=== PATIENT | female | born 1935 | race Caucasian/White ===

== ENCOUNTER 2023-12-26 10:46 | Inpatient (IN) | payer MEDICARE, OTHER ==
[2023-12-26] MEDS: ACETAMINOPHEN 1000 MG/100 ML BAG IVPB ONE (12:15)
[2023-12-26] MEDS: SODIUM CHLORIDE 0.9% 500 ML INFUS.BAG IV ONE ×2 (13:15→16:00)
[2023-12-26 13:38] LABS: BASO % 0.3 % (0-2.0); EOS % 0.2 % (0-4.5); HEMATOCRIT 29.4 % (32.4-45.2); LYMPH % 19.3 % (8-40); MCH 27.7 pg (25.7-33.7); MCHC 33.8 g/dl (32.0-36.0); MEAN PLT VOLUME 8.1 fl (7.5-11.1); MONO % 5.9 % (3.8-10.2); NEUT % 74.3 % (42.8-82.8); PLATELET COUNT 335 10^3/uL (134-434); RBC 3.59 M/mm3 (3.60-5.2); RDW 14.4 % (11.6-15.6); WHITE BLOOD COUNT 10.9 K/mm3 (4.0-10.0)
[2023-12-26 13:41] LABS: EPI CELLS 8 /uL (0-25.1); HYALINE CASTS 0 /uL (0-3.1); PH,URINE 5.5 (5.0-8.0); URINE APPEARANCE CLOUDY; URINE BACTERIA >9,000 /uL (0-1359); URINE BILIRUBIN NEGATIVE (NEGATIVE); URINE COLOR YELLOW; URINE GLUCOSE (UA) NEGATIVE (NEGATIVE); URINE KETONE NEGATIVE (NEGATIVE); URINE LEUK ESTERASE 2+ (NEGATIVE); URINE NITRITE POSITIVE (NEGATIVE); URINE PROTEIN 1+ (NEGATIVE); URINE RBC 6 /uL (0-23.9); URINE UROBILINOGEN 0.2 mg/dL (0.2-1.0); URINE WBC 621 /uL (0-25.8)
[2023-12-26 13:58] LABS: CHLORIDE 94 mmol/L (98-107); SODIUM 122 mmol/L (136-145)
[2023-12-26 13:59] LABS: CALCIUM 9.2 mg/dL (8.5-10.1)
[2023-12-26 14:00] LABS: ALBUMIN 3.5 g/dl (3.4-5.0); BLOOD UREA NITROGEN 36.8 mg/dL (7-18); CO2 20 mmol/L (21-32); GLUCOSE,RANDOM 119 mg/dL (74-106); MAGNESIUM 1.7 mg/dL (1.8-2.4)
[2023-12-26 14:03] LABS: SGOT/AST 14 U/L (15-37)
[2023-12-26 14:05] LABS: BILIRUBIN,TOTAL 0.2 mg/dL (0.2-1); TOT PROT 7.4 g/dl (6.4-8.2)
[2023-12-26 14:06] LABS: ALK PHOS 52 U/L (45-117)
[2023-12-26 14:09] LABS: SGPT/ALT 13 U/L (13-61)
[2023-12-26 14:12] LABS: ANION GAP 8 mmol/L (4-13); POTASSIUM 7.2 mmol/L (3.5-5.1)
[2023-12-26] MEDS ORDERED: DEXTROSE 50%-WATER 25 GM/50 ML DISP.SYRIN ONE (15:41)
[2023-12-26] MEDS ORDERED: CEFTRIAXONE 1 GM/50 ML BAG ONE (15:42)
[2023-12-26] MEDS: CALCIUM GLUCONATE 10% - 1,000 MG/10 ML VIAL IVPUSH ONE (16:00)
[2023-12-26] MEDS: CEFTRIAXONE 1,000 MG in DEXTROSE 5%-WATER - 50 ML IVPB ONE (16:00)
[2023-12-26] MEDS: INSULIN REGULAR HUMAN 100 UNITS/ML *VIAL IVPUSH ONE (16:00)
[2023-12-26] MEDS: DEXTROSE 50%-WATER - 25 GM/50 ML VIAL IVPUSH ONE (16:00)
[2023-12-26] MEDS: CEFTRIAXONE 1 GM in DEXTROSE 5%-WATER - 50 ML IVPB ONE (17:58)
[2023-12-26] MEDS: DEXTROSE 50%-WATER 25 GM/50 ML DISP.SYRIN IVPUSH ONE (18:46)
[2023-12-26] MEDS: MAGNESIUM SULF 50% (8.12 MEQ/2 ML-1 GM VIAL) IVPB ONE (18:46)
[2023-12-26] MEDS: CALCIUM GLUCONATE 10% - 1,000 MG/10 ML VIAL IVPB ONE (18:47)
[2023-12-26 20:57] LABS: POTASSIUM 5.9 mmol/L (3.5-5.1)
[2023-12-26 21:02] LABS: CREATININE 1.5 mg/dL (0.55-1.3)
[2023-12-26] MEDS ORDERED: MIRTAZAPINE 15 MG TABLET (FP) ONE (22:45)
[2023-12-26] MEDS ORDERED: GABAPENTIN 100 MG CAPSULE ONE (22:45)
[2023-12-26] MEDS ORDERED: HEPARIN NA (PORCINE) 5,000 UNITS/ML 1ML VIAL ONE (22:46)
[2023-12-26] MEDS: HEPARIN NA (PORCINE) 5,000 UNITS/ML 1ML VIAL SQ SCH (22:58)
[2023-12-26] MEDS: GABAPENTIN 100 MG CAPSULE PO SCH (22:58)
[2023-12-26] MEDS: INSULIN ASPART SLIDING SCALE (NOVOLOG) 1 VIAL SQ SCH (22:58)
[2023-12-26] MEDS: MIRTAZAPINE 15 MG TABLET (FP) PO SCH (22:58)
[2023-12-27 00:29] VITALS: BMI 29.6
[2023-12-27] MEDS: SODIUM ZIRCONIUM CYCLOSILICATE (LOKELMA) 5 GM PACKET PO SCH (00:44)
[2023-12-27] MEDS: LEVOTHYROXINE NA 75 MCG TABLET (FP) PO SCH (06:28)
[2023-12-27 07:16] LABS: BASO % 1.1 % (0-2.0); EOS % 2.6 % (0-4.5); HEMOGLOBIN 9.6 GM/dL (10.7-15.3); LYMPH % 22.6 % (8-40); MCH 27.7 pg (25.7-33.7); MCHC 33.3 g/dl (32.0-36.0); MEAN CELL VOLUME 83.2 fl (80-96); MONO % 6.8 % (3.8-10.2); NEUT % 66.9 % (42.8-82.8); PLATELET COUNT 300 10^3/uL (134-434); RBC 3.49 M/mm3 (3.60-5.2); RDW 14.3 % (11.6-15.6); WHITE BLOOD COUNT 7.5 K/mm3 (4.0-10.0)
[2023-12-27 07:37] LABS: POTASSIUM 5.3 mmol/L (3.5-5.1)
[2023-12-27 07:43] LABS: BLOOD UREA NITROGEN 26.5 mg/dL (7-18); CALCIUM 8.9 mg/dL (8.5-10.1); MAGNESIUM 1.6 mg/dL (1.8-2.4)
[2023-12-27 07:46] LABS: CREATININE 1.3 mg/dL (0.55-1.3); PHOSPHOROUS 4.6 mg/dL (2.5-4.9)
[2023-12-27 07:47] LABS: BILIRUBIN,TOTAL 0.3 mg/dL (0.2-1); TOT PROT 6.8 g/dl (6.4-8.2)
[2023-12-27] MEDS: MAGNESIUM SULF 50% (8.12 MEQ/2 ML-1 GM VIAL) IVPB ONE (10:14)
[2023-12-27] MEDS: amLODIPine BESYLATE 10 MG TABLET (FP) PO SCH (10:16)
[2023-12-27] MEDS: FAMOTIDINE 20 MG TABLET PO SCH (10:16)
[2023-12-27] MEDS: CEFTRIAXONE 1 GM in DEXTROSE 5%-WATER - 50 ML IVPB SCH (10:17)
[2023-12-27] MEDS: MIRTAZAPINE 15 MG TABLET (FP) PO SCH (22:02)
[2023-12-28 07:52] LABS: HEMATOCRIT 29.8 % (32.4-45.2); MCH 27.9 pg (25.7-33.7); MCHC 33.5 g/dl (32.0-36.0); MEAN CELL VOLUME 83.4 fl (80-96); MEAN PLT VOLUME 7.7 fl (7.5-11.1); PLATELET COUNT 316 10^3/uL (134-434); RBC 3.57 M/mm3 (3.60-5.2); RDW 14.4 % (11.6-15.6); WHITE BLOOD COUNT 7.9 K/mm3 (4.0-10.0)
[2023-12-28 08:00] LABS: POTASSIUM 4.4 mmol/L (3.5-5.1)
[2023-12-28 08:07] LABS: CALCIUM 9.1 mg/dL (8.5-10.1)
[2023-12-28 08:08] LABS: BLOOD UREA NITROGEN 17.6 mg/dL (7-18); MAGNESIUM 2.2 mg/dL (1.8-2.4)
[2023-12-28 08:11] LABS: CREATININE 1.1 mg/dL (0.55-1.3)
[2023-12-28 08:12] LABS: BILIRUBIN,TOTAL 0.3 mg/dL (0.2-1); TOT PROT 6.8 g/dl (6.4-8.2)
[2023-12-28 15:40] VITALS: BP 129/57; PULSE 105; RESP 21; TEMP 98.1
== END 2023-12-28 19:17 | disposition home or self-care (01) | DRG 683 ==
LOC: JER 10:46 → JERBED 15:33 → J4W 12-27 00:13
PROVIDERS: ADMIT Internal Medicine; ATTEND Internal Medicine
DX: N17.9 Acute kidney failure, unspecified (principal); E87.1 Hypo-osmolality and hyponatremia; N39.0 Urinary tract infection, site not specified; K21.9 Gastro-esophageal reflux disease without esophagitis; E87.5 Hyperkalemia; B96.20 Unspecified Escherichia coli [E. coli] as the cause of diseases classified elsewhere; I10 Essential (primary) hypertension; E11.9 Type 2 diabetes mellitus without complications; W18.30XA Fall on same level, unspecified, initial encounter; Y92.89 Other specified places as the place of occurrence of the external cause; Y99.9 Unspecified external cause status
CPT/HCPCS: 0241U-QW; 36415; 70450-TC; 71045-TC-FY; 72125-TC; 72131-TC; 72170-TC-FY; 73030-TC-RT-FY; 76775-TC; 80048; 80053; 81003; 82962; 83036; 83735; 83930; 84100; 84439; 84443; 84484; 85025; 85027; 87086; 87186; 93005; 93010; 94761; 97116-GP; 97161-GP; 99285-25; J1644